=== PATIENT | female | born 1960 | race Caucasian/White ===

== ENCOUNTER 2024-10-07 05:40 | Inpatient (IN) | payer OTHER ==
[2024-10-07] MEDS ORDERED: METOCLOPRAMIDE HCL INJECTION 10 MG/2 ML VIAL ONE (06:03)
[2024-10-07] MEDS: METOCLOPRAMIDE HCL INJECTION 10 MG/2 ML VIAL IVPB ONE (06:10)
[2024-10-07] MEDS: SODIUM CHLORIDE 0.9% 1000 ML INFUS.BAG IV ONE (06:10)
[2024-10-07] MEDS ORDERED: diazePAM CARPU-JECT 10 MG/2 ML DISP.SYRIN ONE (06:28)
[2024-10-07] MEDS: diazePAM CARPU-JECT 10 MG/2 ML DISP.SYRIN IVPUSH ONE (06:42)
[2024-10-07 08:28] LABS: ABSOLUTE IMMATURE GRANULOCYTES 0.02 x10^3/uL (0.0-0.031); BASOPHILS # 0.03 x10^3/uL (0.01-0.08); EOSINOPHIL % 2.4 % (0.7-5.8); EOSINOPHILS # 0.13 x10^3/uL (0.04-0.36); HEMATOCRIT 45.2 % (34.1-44.9); HEMOGLOBIN 14.4 g/dL (11.2-15.7); MCHC 31.9 g/dl (32.2-35.5); MEAN PLT VOLUME 10.9 fl (9.4-12.3); MONOCYTE # 0.72 x10^3/uL (0.24-0.86); MONOCYTE % 13.2 % (4.7-12.5); PLATELET COUNT 296 x10^3/uL (182-369); RDW 12.7 % (12.4-16.4)
[2024-10-07 08:37] LABS: INR 1.04 (0.83-1.09); PROTHROMBIN TIME (PATIENT) 11.5 SEC (9.7-13.0)
[2024-10-07] MEDS ORDERED: MECLIZINE HCL 25 MG TABLET (FP) ONE (09:30)
[2024-10-07] MEDS: MECLIZINE HCL 25 MG TABLET (FP) PO ONE (09:35)
[2024-10-07] MEDS ORDERED: ONDANSETRON 4 MG/2 ML VIAL ONE (09:56)
[2024-10-07] MEDS: ONDANSETRON 4 MG/2 ML VIAL IVPUSH ONE (09:59)
[2024-10-07 10:19] LABS: ALBUMIN 4.6 g/dl (3.4-5.0); CALCIUM 9.5 mg/dl (8.5-10.1); CREATININE 0.7 mg/dl (0.6-1.3); MAGNESIUM 2.2 mg/dL (1.8-2.4); POTASSIUM 3.9 mmol/L (3.5-5.1)
[2024-10-07 10:48] LABS: BILIRUBIN,TOTAL 0.4 mg/dl (0.2-1)
[2024-10-07 13:26] VITALS: BMI 25.1
[2024-10-07] MEDS ORDERED: DEXAMETHASONE 4 MG TABLET (FP) PO SCH (16:30)
[2024-10-07] MEDS: FLUDROCORTISONE ACETATE 0.1 MG TABLET (FP) PO SCH (17:01)
[2024-10-07] MEDS: MECLIZINE HCL 25 MG TABLET (FP) PO SCH (17:05)
[2024-10-07] MEDS: MAG HYDROX/AL HYDROX/SIMETH 30 ML UNIT-DOSE CUP PO PRN (20:22)
[2024-10-08] MEDS: ACETAMINOPHEN 1000 MG/100 ML BAG IVPB ONE (02:32)
[2024-10-08] MEDS: ONDANSETRON 4 MG/2 ML VIAL IVPUSH ONE (03:08)
[2024-10-08] MEDS: DEXAMETHASONE 0.5 MG TABLET PO SCH (06:50)
[2024-10-08] MEDS: LEVOTHYROXINE NA 75 MCG TABLET (FP) PO SCH (06:50)
[2024-10-08] MEDS: AMOX TR/POT CLAV 500MG/125MG TABLETS (FP) PO SCH (13:53)
[2024-10-08] MEDS: ACETAMINOPHEN 325 MG TABLET (FP) PO PRN (13:53)
[2024-10-08 18:10] VITALS: RESP 16
[2024-10-09 06:15] VITALS: BP 106/76; PULSE 78; TEMP 98.4
== END 2024-10-09 12:47 | disposition home or self-care (01) | DRG 111 ==
LOC: FER 05:40 → FM/S 11:11 → OBSVTOIN 16:18
DX: H83.09 Labyrinthitis, unspecified ear (principal); R42 Dizziness and giddiness; E27.1 Primary adrenocortical insufficiency
CPT/HCPCS: 0241U-QW; 36415; 70450-TC; 71045-TC-FY; 80053; 83735; 84443; 84484; 85025; 85610; 85730; 99285-25; G0378